=== PATIENT | female | born 1995 | race Caucasian/White ===

== ENCOUNTER 2017-09-24 16:20 | Inpatient (IN) | payer BC, MEDICAID ==
[2017-09-24] MEDS ORDERED: LIDOCAINE HCL 50 ML VIAL PERI PRN (16:35)
[2017-09-24] MEDS ORDERED: OXYTOCIN/DEXTROSE 5%-WATER 30 UNITS/500 ML BAG IV ONE (16:35)
[2017-09-24] MEDS ORDERED: ONDANSETRON HCL/PF 2 MG/ML VIAL IV PRN (16:35)
[2017-09-24] MEDS ORDERED: RINGER'S SOLUTION,LACTATED 1,000 ML IV ONE (16:35)
[2017-09-24 19:14] LABS: Hematocrit 32.4 % (37.0-47.0); Hemoglobin 11.1 gm/dL (12.5-16.0); Mean Cell Volume 85.3 fl (78-100); Mean Corpuscular Hemoglobin 29.2 pg (27-31); Mean Corpuscular Hgb Conc 34.3 g/dl (32-36); Mean Platelet Volume 12.5 fl (6.0-9.5); Neutrophil # 10.1 K/mm3 (1.3-6.0); Neutrophil % 78.5 % (42-75.0); Platelet Count 175 K/mm3 (150-450); Red Cell Distribution Width 12.7 % (11.5-14.0); White Blood Count 12.8 K/mm3 (4.0-10.5)
[2017-09-24] MEDS: MISOPROSTOL 100 MCG TABLET VG PRN ×2 (19:25→23:34)
[2017-09-24 19:27] LABS: Albumin * 2.4 gm/dl (3.4-5.0); Anion Gap 16.6 mmol/L (6.8-13.8); BUN/Creatinine Ratio 15.4 (9.0-21.6); Bilirubin, Total 0.1 mg/dL (0.0-1.1); Ca. Corrected For Albumin 9.4 mg/dL (8.4-10.2); Calcium * 8.4 mg/dL (7.9-10.9); Carbon Dioxide 20.8 mmol/L (24-32.6); Potassium 3.4 mmol/L (3.4-4.6); Total Protein 6.6 gm/dL (6.2-8.2)
--- NOTE | 2017-09-25 09:03 | PN ---
Progess Note - Interim Date: 09/25/17 Time: 09:00 Narrative: 09/25/17 09:00 Patient not feeling her contractions very much. Vital signs stable. Status post Cytotec 2 doses. FHT: 130 baseline, reassuring Contractions q 2-5 minutes Cervix: Fingertip/50/-2 Impression: Intrauterine at 37-6/7 weeks induction of labor for gestational hypertension. Plan: Because blood pressures have remained stable throughout the evening and baby looks good and mother is asymptomatic, we will allow her to shower, have a regular breakfast, and then resume another dose of Cytotec.
[2017-09-25] MEDS: MISOPROSTOL 100 MCG TABLET VG PRN (09:49)
[2017-09-25] MEDS ORDERED: DINOPROSTONE 10 MG SUPP.VAG VG ONE (15:30)
--- NOTE | 2017-09-25 16:53 | PN ---
Progess Note - Interim Date: 09/25/17 Time: 16:47 Narrative: 09/25/17 16:47 Patient complains of mild cramping with contractions Vital signs stable. Status post 2 doses of Cytotec-last dose given at 0945 FHT: 140 baseline, good noab-vw-bsnc variability with rare variables deceleration, good accelerations. Contractions q 2-3 min Cervix: Fingertip/50/-2 Impression: Intrauterine at 37-6/7 weeks, induction of labor for gestational hypertension. Slow progress of labor Plan: Cervidil placed. Since patient's blood pressures have remained completely normal since admission, she was given the option to go home and return in a couple days. Patient desires to continue with induction of labor.
[2017-09-26] MEDS ORDERED: DEXTROSE 5%-LACTATED RINGERS 1,000 ML IV PRN (06:34)
--- NOTE | 2017-09-26 06:51 | PN ---
Progess Note - Interim Date: 09/26/17 Time: 06:46 Narrative: 09/26/17 06:46 Patient feeling only occasional contraction and rating them very mild. Denies headaches, visual changes, or epigastric pain. Vital signs stable. Status post 2 doses of Cytotec and 15 hours of Cervidil FHT:150 baseline, reassuring. Late yesterday afternoon and early this morning there were a few variable decelerations, some with a late component. Contractions q 1-4 min Cervix: Fingertip/50/-2 Impression: Intrauterine at 37 6/7 weeks induction of labor for gestational hypertension, poor progress Plan: We'll do a trial of Pitocin to see if we can get the cervix dilated enough to insert a Perkins bulb catheter. If no change in cervix by noon we'll strongly recommend to patient again discharging to home and returning in a few days as long as blood pressures remain as good as they have been throughout her hospital stay.
[2017-09-26] MEDS ORDERED: TERBUTALINE SULFATE 1 MG/ML VIAL ONE (08:08)
[2017-09-26] MEDS ORDERED: TERBUTALINE SULFATE 1 MG/ML VIAL SC ONE (08:09)
[2017-09-26] MEDS ORDERED: RINGER'S SOLUTION,LACTATED 1,000 ML IV ONE ×2 (08:12→12:28)
[2017-09-26] MEDS: RINGER'S SOLUTION,LACTATED 1,000 ML IV PRN ×2 (09:05→11:22)
[2017-09-26] MEDS ORDERED: OXYTOCIN/DEXTROSE 5%-WATER 30 UNITS/500 ML BAG IV ONE (09:15)
[2017-09-26] MEDS ORDERED: RINGER'S SOLUTION,LACTATED 1,000 ML IV PRN ×2 (10:41)
[2017-09-26] MEDS ORDERED: ceFAZolin SODIUM/DEXTROSE,ISO 2 GM/50 ML BAG IV ONE (10:41)
[2017-09-26] MEDS ORDERED: OXYTOCIN 20 UNITS in RINGER'S SOLUTION,LACTATED 1,000 ML IV ONE (10:41)
--- NOTE | 2017-09-26 11:51 | PN ---
Progess Note - Interim Date: 09/26/17 Time: 11:49 Narrative: 09/26/17 11:49 Fetus has been unable to tolerate labor for the past several hours. Every time adequate contractions are obtained we have late decelerations. Patient's cervix remains unchanged at fingertip/50/-2. Risks/benefits/alternatives S with patient and family. We'll proceed with primary low transverse section for intolerance to labor.
[2017-09-26] MEDS ORDERED: SENNOSIDES 8.6 MG TABLET PO PRN (13:16)
[2017-09-26] MEDS ORDERED: oxyCODONE HCL/ACETAMINOPHEN 1 TAB TABLET PO PRN (13:16)
[2017-09-26] MEDS ORDERED: GLYCERIN/WITCH HAZEL LEAF 40 APPL BOX TP PRN (13:16)
[2017-09-26] MEDS ORDERED: HYDROCORTISONE 30 APPL TUBE TP PRN (13:16)
[2017-09-26] MEDS ORDERED: BENZOCAINE/MENTHOL 81 SPRAY CAN TP PRN (13:16)
[2017-09-26] MEDS ORDERED: BISACODYL 10 MG SUPP.RECT RC PRN (13:16)
[2017-09-26] MEDS ORDERED: OXYTOCIN/DEXTROSE 5%-WATER 500 ML IV ONE (13:16)
--- NOTE | 2017-09-26 13:21 | OR ---
Operative Report - Dictated Report Narrative: Indication: 22 year old female admitted for induction of labor due to gestational hypertension. After over 36 hours of cervical ripening agents patient failed to dilate past fingertip. As contractions increased in intensity , variable decelerations with a late return to baseline became more frequent and till they became gera late decelerations with each contraction. Pitocin was turned off and fetus was given an hour arrest. When Pitocin restarted and patient began having contractions and again there were late decelerations with each contraction. Status: Planned Pre Operative Diagnosis: 38 week intrauterine , gestational hypertension, intolerance to labor Post Operative Diagnosis: Same. Procedure Preformed: Primary Low Transverse Section Surgeon: Gopi Enrique DO Book Editor: OR Staff Anesthesia: Spinal with tap block Estimated Blood Loss: 200 mL Urine Output: 50 mL clear urine Fluids Given: 600 mL of crystalloid Drains: Warren to gravity Surgical Complications: None Specimens: Placenta to pathology Findings: Female born in cephalic presentation at 1229 on 10/06/2019 with Apgars 8 and 9, weighing 2707 g. True knot in cord 1. Normal uterus, tubes, ovaries. Technique: The patient was taken to the operating room and placed in dorsal supine position with a left lateral tilt. After adequate spinal anesthesia, warren catheter insertion,SCDs placed, and 2 g of Ancef given preoperatively, the abdominal cavity was entered via a modified Arthur-Hare incision. Two rolled laps were placed in the pericolic gutters on either side of the uterus. A transverse incision was made in the lower uterine segment and extended laterally and upwardly with digital traction. Clear fluid was noted upon amniotomy. The infant was delivered easily. The cord was clamped and cut and was handed off to awaiting lens edge grinder machine. The placenta was allowed to deliver spontaneously. The uterus was cleared of clot and debris. Uterine incision was closed with 0 Vicryl using a running stitch. A second imbricating layer was placed. Excellent hemostasis was noted. Rolled laps were removed from the abdominal cavitiy. The peritoneum was closed with a running 3-0 Monocryl. The same suture was used to approximate the rectus and pyramidalis muscles. The fascia was closed with a running 0 Vicryl. The subcutaneous layer was closed with a running 3-0 Monocryl. The same suture was used to approximate the subdermal layer. The skin was closed with a running 4-0 Monocryl and Dermabond. Sponge, lap, needle, and instrument count were correct x 2. Disposition: The patient was transferred to post anesthesia care unit in good condition
--- NOTE | 2017-09-26 13:38 | OR ---
Anesthesia Procedure Note - Anesthesia Procedure Note Date of Service: 09/26/17 Narrative: Vital Signs - Last Taken Temp 37.3 C 09/26/17 13:15 Pulse 81 09/26/17 13:35 Resp 16 09/26/17 13:35 BP 109/61 09/26/17 13:35 Pulse Ox 97 09/26/17 13:35 O2 Oxygen Delivery Method Room Air 09/26/17 13:37 ANESTHESIA PROCEDURE NOTE Date of Procedure: 09/26/2017 Time of procedure: 1320. Performed by: CHUCHO Isabel CRNA, MSN [place] Shade Ring Sewer: Janell Diallo RN. Preprocedure diagnosis: Post section pain. Post procedure diagnosis: Same. Procedure: Bilateral TAP block Indications: Post section pain relief. Findings: See below. Details of the procedure: The patient was brought to PACU and placed in the supine position. The patient was prepped with chlorhexidine and using ultrasound guidance the 3 abdominal muscular planes were identified and lidocaine 1% was infiltrated to the skin of the intended injection site. Under ultrasound guidance the the internal oblique and transverse this abdominis muscle layers were approached with visualization of a 4 inch block needle until the tip of the needle rested in the plane between the muscles. 25 mL bupivacaine 0.5% with 1-200,000 epinephrine was injected and the procedure was repeated on the other side. Please see radiology/ultrasound report for details and images of the procedure. EBL: 0 Fluids: N/A. Specimen: N/A. Post procedure condition: The patient tolerated the procedure well. No complications were noted. Thank you for this consultation. Lorenzo Booth CRNA, ARNP, MSN
[2017-09-26] MEDS: IBUPROFEN 800 MG TABLET PO PRN ×2 (14:54→21:00)
[2017-09-26] MEDS: oxyCODONE HCL/ACETAMINOPHEN 1 TAB TABLET PO PRN ×3 (14:54→21:00)
[2017-09-26] MEDS: DOCUSATE SODIUM 100 MG CAPSULE PO SCH (20:59)
[2017-09-26] MEDS: ENOXAPARIN SODIUM 40 MG/0.4 ML SYRG SC SCH (21:32)
[2017-09-27] MEDS: oxyCODONE HCL/ACETAMINOPHEN 1 TAB TABLET PO PRN ×7 (00:16→20:53)
[2017-09-27] MEDS: IBUPROFEN 800 MG TABLET PO PRN ×3 (03:23→16:49)
[2017-09-27] MEDS: DOCUSATE SODIUM 100 MG CAPSULE PO SCH ×2 (08:18→20:53)
--- NOTE | 2017-09-27 15:36 | PN ---
Subjective - Date and Time Seen Date: 09/27/17 Time: 15:35 Objective - Vitals Vitals: Last Vital Signs Temp 36.6 C 09/27/17 11:23 Pulse 102 H 09/27/17 11:23 Resp 18 09/27/17 11:23 BP 124/77 09/27/17 11:23 Pulse Ox 100 09/27/17 11:23 Patient denies complaints. Tolerating regular diet. Ambulating without difficulty. Pain well controlled. Lochia wnl. Abdomen - soft, appropriately tender Incision - clean, dry, intact Uterus - firm, at umbilicus -1 No calf tenderness Impression: Post op day #1 s/p primary section. Gestational hypertension-resolved. Plan: Continue routine post-operative/ care
[2017-09-27] MEDS: ENOXAPARIN SODIUM 40 MG/0.4 ML SYRG SC SCH (20:54)
[2017-09-28] MEDS: IBUPROFEN 800 MG TABLET PO PRN ×3 (01:58→21:31)
[2017-09-28] MEDS: oxyCODONE HCL/ACETAMINOPHEN 1 TAB TABLET PO PRN ×4 (01:58→21:31)
[2017-09-28] MEDS: DOCUSATE SODIUM 100 MG CAPSULE PO SCH ×2 (08:26→21:27)
--- NOTE | 2017-09-28 15:14 | PN ---
Subjective - Date and Time Seen Date: 09/28/17 Time: 15:13 Objective - Vitals Vitals: Last Vital Signs Temp 36.8 C 09/28/17 12:17 Pulse 78 09/28/17 12:17 Resp 18 09/28/17 12:17 BP 125/76 09/28/17 12:17 Pulse Ox 97 09/28/17 12:17 Patient denies complaints. Ambulating well. Tolerating regular diet. Pain well controlled. Lochia wnl. Abdomen - soft, appropriately tender Incision - clean, dry, intact Uterus - firm, at umbilicus -2 No calf tenderness Impression: Post op day #2 s/p primary section. Gestational hypertension-resolved. Plan: Continue routine post-operative/ care
[2017-09-28] MEDS: ENOXAPARIN SODIUM 40 MG/0.4 ML SYRG SC SCH (21:27)
[2017-09-29 08:50] VITALS: BP 145/92
[2017-09-29] MEDS: IBUPROFEN 800 MG TABLET PO PRN (08:55)
[2017-09-29] MEDS: DOCUSATE SODIUM 100 MG CAPSULE PO SCH (08:56)
[2017-09-29] MEDS: oxyCODONE HCL/ACETAMINOPHEN 1 TAB TABLET PO PRN (08:56)
--- NOTE | 2017-09-29 11:06 | PN ---
Subjective - Date and Time Seen Date: 09/29/17 Time: 10:59 Objective - Vitals Vitals: Last Vital Signs Temp 36.8 C 09/29/17 06:35 Pulse 77 09/29/17 06:35 Resp 18 09/29/17 06:35 BP 145/92 09/29/17 08:25 Pulse Ox 99 09/29/17 06:35 Patient denies complaints. Ambulating without difficulty. Tolerating regular diet. Pain well controlled. Lochia wnl. Abdomen - soft, appropriately tender Incision - clean, dry, intact Uterus - firm, at umbilicus -3 No calf tenderness. DTR-3/4 Impression: Post op day #3 s/p primary section. Gestational hypertension-returning. Plan: Routine discharge instructions with the addition of blood pressure checks twice a day and daily weight. Preeclampsia precautions. Follow-up in 1 week for blood pressure check in office. Cauti Physician Documentation - Urinary Catheter Management 2-way Urethral Date of Insertion: 09/26/17 Time of Insertion: 12:00
== END 2017-09-29 11:30 | disposition home or self-care (01) | DRG 766 ==
LOC: OB 17:55
PROVIDERS: ADMIT Obstetrics & Gynecology; ATTEND Obstetrics & Gynecology
PROC: 10D00Z1 Extraction of Products of Conception, Low, Open Approach (ICD-10-PCS; principal; 2017-09-26)
PROC: 4A1HXCZ Monitoring of Products of Conception, Cardiac Rate, External Approach (ICD-10-PCS; 2017-09-26)
DX: O62.0 Primary inadequate contractions (principal); O13.4 Gestational [pregnancy-induced] hypertension without significant proteinuria, complicating childbirth; O99.02 Anemia complicating childbirth; D50.8 Other iron deficiency anemias; O69.2XX0 Labor and delivery complicated by other cord entanglement, with compression, not applicable or unspecified; O76 Abnormality in fetal heart rate and rhythm complicating labor and delivery; Z3A.38 38 weeks gestation of pregnancy; Z37.0 Single live birth